=== PATIENT | male | born 1970 | race Caucasian/White ===

== ENCOUNTER 2021-08-18 07:06 | Day surgery (SDC) | payer BC ==
[2021-08-13 10:58] VITALS: BMI 45.4
[2021-08-18] MEDS ORDERED: PROPOFOL 200 MG/20 ML VIAL ONE (09:49)
[2021-08-18] MEDS ORDERED: Lidocaine 1% PF 5 ML VIAL ONE (09:49)
== END 2021-08-18 11:10 | disposition home or self-care (01) ==
LOC: SDC 07:06
PROVIDERS: ATTEND Internal Medicine Gastroenterology
PROC: 0DJD8ZZ Inspection of Lower Intestinal Tract, Via Natural or Artificial Opening Endoscopic (ICD-10-PCS; principal; 2021-08-18)
DX: Z12.11 Encounter for screening for malignant neoplasm of colon (principal); K57.31 Diverticulosis of large intestine without perforation or abscess with bleeding; K64.0 First degree hemorrhoids; E11.9 Type 2 diabetes mellitus without complications; I10 Essential (primary) hypertension; E07.9 Disorder of thyroid, unspecified; Z86.16 Personal history of COVID-19; Z79.899 Other long term (current) drug therapy; Z88.0 Allergy status to penicillin; Z88.5 Allergy status to narcotic agent; Z88.6 Allergy status to analgesic agent
CPT/HCPCS: J2704

== ENCOUNTER 2022-09-12 08:27 | Outpatient (CLI) | payer BC | END 2022-09-12 08:28 | disposition home or self-care (01) | LOC: BICCT 08:27 | PROVIDERS: ATTEND Internal Medicine Gastroenterology | DX: R10.9 Unspecified abdominal pain (principal); M54.9 Dorsalgia, unspecified; R16.1 Splenomegaly, not elsewhere classified; K76.0 Fatty (change of) liver, not elsewhere classified; E27.9 Disorder of adrenal gland, unspecified | CPT/HCPCS: 74177; 82565 ==

== ENCOUNTER 2025-04-21 10:17 | Emergency (ER) | payer BC, SELFPAY ==
[2025-04-21] MEDS ORDERED: Acetaminophen 500 MG TAB ONE (12:46)
[2025-04-21] MEDS ORDERED: Methocarbamol 500 MG TAB ONE ×2 (12:47)
== END 2025-04-21 14:20 | disposition home or self-care (01) ==
LOC: ERS 10:17
DX: M54.50 Low back pain, unspecified (principal); E11.9 Type 2 diabetes mellitus without complications; E03.9 Hypothyroidism, unspecified; Z79.890 Hormone replacement therapy
CPT/HCPCS: 99283